=== PATIENT | male | born 1985 | race Caucasian/White ===

== ENCOUNTER 2016-09-30 19:16 | Emergency (ER) | payer SELFPAY ==
--- NOTE | 2016-09-30 19:50 | Emergency Department Record ---
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 He slipped and tried to break his fall by grabbing a hand rail jamming his left thumb. He has pain at the IP joint and not the snuff box. Intact skin. He is right handed. MD Complaint: Joint pain Onset/Timin -: Hour(s) Location: Left History of Same: No Radiation: None Quality: Aching Consistency: Constant Improves with: Nothing Worsens with: Exertion, Palpation Associated Symptoms: Denies other symptoms - Related Data Home Medications Medication Instructions Recorded Confirmed Last Taken No Home Med [NO HOME MEDS] 09/30/16 09/30/16 Unknown Allergies Allergy/AdvReac Type Severity Reaction Status Date / Time No Known Drug Allergies Allergy Verified 09/30/16 20:05 Travel Screening - Travel/Exposure Within Last 30 Days Have you traveled within the last 30 days?: No - Travel Symptoms Symptom Screening: None Review of Systems Constitutional: Denies: Chills, Fever, Weakness Eyes: Denies: Eye discharge ENT: Denies: Congestion, Throat pain Cardiovascular: Denies: Chest pain Endocrine: Denies: Fatigue Gastrointestinal: Denies: Diarrhea, Nausea, Vomiting Genitourinary: Denies: Dysuria Musculoskeletal: Reports: As per HPI, Arthralgia Skin: Denies: Bruising, Change in color, Rash Neurological: Denies: Headache Psychiatric: Denies: Anxiety Hematological/Lymphatic: Denies: Blood Clots, Easy bleeding, Easy bruising, Swollen glands Past Medical History - SOCIAL HISTORY Smoking Status: Never smoker Alcohol Use: Occassional Drug Use: None - RESPIRATORY Hx Respiratory Disorders: No - CARDIOVASCULAR Hx Cardio Disorders: No - NEURO Hx Neuro Disorders: No - GI Hx GI Disorders: Yes Comment:: eosinophilic esophagitis - Hx Genitourinary Disorders: No - ENDOCRINE Hx Endocrine Disorders: No - MUSCULOSKELETAL Hx Musculoskeletal Disorders: No - PSYCH Hx Psych Problems: No - HEMATOLOGY/ONCOLOGY Hx Hematology/Oncology Disorders: No Family Medical History Any Significant Family History?: No Physical Exam - General General Appearance: Alert, Oriented x3, Cooperative, No acute distress - Head Head exam: Atraumatic, Normocephalic, Normal inspection - Eye Eye exam: Normal appearance - ENT ENT exam: Normal exam Ear exam: Normal external inspection Nasal Exam: Normal inspection - Neck Neck exam: Normal inspection - Cardiovascular Peripheral Pulses: 2+: Radial (L) - Rectal Rectal exam: Deferred - exam: Deferred - Extremities Extremities exam: Normal inspection, Full ROM, Normal capillary refill, Other ( No tenderness in the anatomic snuff box). negative: Joint swelling Image of Hand: 1 - mild tenderness at the joint, no swelling, no deformity, full ROM - Neurological Neurological exam: Alert, Oriented X3 - Psychiatric Psychiatric exam: Normal affect, Normal mood. negative: Agitated, Anxious - Skin Skin exam: Dry, Intact, Normal color, Warm. negative: Abrasion Course Vital Signs 09/30/16 19:34 Temperature 98.4 F Pulse Rate [ 98 H Pulse Ox Probe] Respiratory 20 Rate Blood Pressure 136/89 [Left Arm] Pulse Ox 99 - Reevaluation(s) Reevaluation #1: 09/30/16 19:43 XR ordered for left IP joint pain of the left thumb Reevaluation #2: Prelim XR reviewed by me No acute fracture noted or dislocation 09/30/16 20:07 Reevaluation #3: 09/30/16 22:14 Final read was negative for acute process Disposition Disposition: Discharge Clinical Impression: Sprain of hand, thumb, left Qualifiers: Encounter type: initial encounter Sprain of finger site: interphalangeal joint Qualified Code(s): S63.622A - Sprain of interphalangeal joint of left thumb, initial encounter Disposition: Home, Self-Care Condition: (1) Good Instructions: Skier's Thumb (ED) Additional Instructions: Ice to the sore area Avoid over use for 3-4 days Repeat the XR in one week if any pain continues Forms: Patient Portal Access Time of Disposition: 20:05
== END 2016-09-30 20:10 | disposition home or self-care (01) ==
LOC: ER 19:16
DX: S63.622A Sprain of interphalangeal joint of left thumb, initial encounter (principal); W01.0XXA Fall on same level from slipping, tripping and stumbling without subsequent striking against object, initial encounter; Y99.0 Civilian activity done for income or pay
CPT/HCPCS: 99283